=== PATIENT | male | born 1975 | race Caucasian/White ===

== ENCOUNTER 2018-01-31 13:12 | Emergency (ER) | payer OTHER ==
[2018-01-31 13:24] VITALS: BP 153/97
[2018-01-31] MEDS ORDERED: PREDNISONE 20 MG TABLET PO ONE (13:48)
--- NOTE | 2018-01-31 13:52 | ER Document Report ---
HPI - HPI Patient complains to provider of: Skin rash Onset: Other - Days Onset/Duration: Worse Pain Level: 3 Context: Patient complains of pruritic skin rash for the past 4 days. Patient states that he was working out in the yard and likely was exposed to poison stan. Associated Symptoms: Other - Skin rash Exacerbated by: Denies Relieved by: Denies Similar symptoms previously: Yes Recently seen / treated by doctor: No - ROS ROS below otherwise negative: Yes Systems Reviewed and Negative: Yes All other systems reviewed and negative - CONSTITUTIONAL Constitutional: DENIES: Fever, Chills - DERM Skin Problems: Rash Past Medical History - General Information source: Patient - Social History Smoking Status: Current Every Day Smoker Smoking Education Provided: Yes Frequency of alcohol use: None Drug Abuse: None Occupation: Retail Lives with: Family Family History: Reviewed & Not Pertinent - Past Medical History Cardiac Medical History: Reports: Hx Hypertension - does not take any medications Pulmonary Medical History: Reports: Hx Asthma, Hx Bronchitis GI Medical History: Reports: Hx Gastroesophageal Reflux Disease Musculoskeletal Medical History: Reports Hx Arthritis - right knee Psychiatric Medical History: Reports: Hx Anxiety - DX [place] 2007, Hx Depression Past Surgical History: Reports: Hx Appendectomy, Hx Orthopedic Surgery - R knee , ankle, Hx Vascular Surgery - [place] 2001 - Immunizations Hx Diphtheria, Pertussis, Tetanus Vaccination: No Vertical Provider Document - CONSTITUTIONAL Agree With Documented VS: Yes Exam Limitations: No Limitations General Appearance: WD/WN, No Apparent Distress - INFECTION CONTROL TRAVEL OUTSIDE OF THE [place] IN LAST 30 DAYS: No - HEENT HEENT: Atraumatic, Normocephalic - NECK Neck: Normal Inspection - RESPIRATORY Respiratory: No Respiratory Distress - CARDIOVASCULAR Pulses: Normal: Radial - MUSCULOSKELETAL/EXTREMETIES Musculoskeletal/Extremeties: MAEW - NEURO Level of Consciousness: Awake, Alert, Appropriate Motor/Sensory: No Motor Deficit - DERM Integumentary: Warm, Dry, Rash - Erythematous macular papular rash with scattered vesicular lesions, some with a linear distribution pattern Course - Re-evaluation Re-evalutation: 01/31/18 13:49 Patient with a rash that is consistent with contact dermatitis. Patient encouraged to use [id number] poison stan skin wash - Vital Signs Vital signs: Temp Pulse Resp BP Pulse Ox 98.1 F 76 14 153/97 H 97 01/31/18 13:23 01/31/18 13:23 01/31/18 13:23 01/31/18 13:23 01/31/18 13:23 Discharge - Discharge Clinical Impression: Contact dermatitis Qualifiers: Contact dermatitis type: unspecified Contact dermatitis trigger: non-food plants Qualified Code(s): L25.5 - Unspecified contact dermatitis due to plants, except food Condition: Stable Disposition: HOME, SELF-CARE Instructions: Contact Dermatitis ([facility]), Antihistamines ([facility]), Steroid Medication Additional Instructions: Return immediately for any new or worsening symptoms Followup with your primary care provider, call tomorrow to make a followup appointment Use of mimx-lwf-[id number] technu or Zanfel skin wash as directed Prescriptions: Hydroxyzine HCl [Atarax 25 mg Tablet] 1 - 2 tab PO QID #20 tablet Prednisone [Deltasone 5 mg Tablet] 5 mg PO ASDIR PRN #100 tablet PRN Reason: Forms: Smoking Cessation Education, Return to Work Referrals: [facility] [Provider Group] - Follow up as needed
== END 2018-01-31 14:01 | disposition home or self-care (01) ==
LOC: ER 13:12
DX: L25.9 Unspecified contact dermatitis, unspecified cause (principal); I10 Essential (primary) hypertension; J45.909 Unspecified asthma, uncomplicated
CPT/HCPCS: 99282; J7512

== ENCOUNTER 2018-02-15 12:53 | Emergency (ER) | payer OTHER ==
[2018-02-15] MEDS ORDERED: ACETAMINOPHEN 325 MG TABLET PO ONE (13:02)
[2018-02-15] MEDS ORDERED: IBUPROFEN 600 MG TABLET PO ONE (13:02)
--- NOTE | 2018-02-15 13:02 | ER Document Report ---
HPI - HPI Patient complains to provider of: Toothache Onset: Other - 2 days ago Quality of pain: Throbbing Pain Level: 4 Context: 43-year-old [place] smoker male with poor dentition is complaining of upper left side gum and teeth pain. It is gotten worse over the past 3 days. No fever or chills. No swelling. He has a 10-year history of hypertension and states it has been more than several months since he is taken blood pressure medication he was given hydrochlorothiazide prescription in the emergency department in 2016. He has not seen the [place] recently. He denies headache or dizziness. Associated Symptoms: None Exacerbated by: Movement Relieved by: Denies Similar symptoms previously: Yes Recently seen / treated by doctor: No - ROS ROS below otherwise negative: Yes Systems Reviewed and Negative: Yes All other systems reviewed and negative - REPRODUCTIVE Reproductive: DENIES: : Past Medical History - General Information source: Patient - Social History Smoking Status: Current Every Day Smoker Lives with: Spouse/Significant other Family History: Reviewed & Not Pertinent - Past Medical History Cardiac Medical History: Reports: Hx Hypertension - does not take any medications Pulmonary Medical History: Reports: Hx Asthma, Hx Bronchitis GI Medical History: Reports: Hx Gastroesophageal Reflux Disease Musculoskeletal Medical History: Reports Hx Arthritis - right knee Psychiatric Medical History: Reports: Hx Anxiety - DX [place] 2007, Hx Depression Past Surgical History: Reports: Hx Appendectomy, Hx Orthopedic Surgery - R knee , ankle, Hx Vascular Surgery - [place] 2001 - Immunizations Hx Diphtheria, Pertussis, Tetanus Vaccination: No Vertical Provider Document - CONSTITUTIONAL Agree With Documented VS: Yes Exam Limitations: No Limitations - INFECTION CONTROL TRAVEL OUTSIDE OF THE [place] IN LAST 30 DAYS: No - HEENT Notes: Multiple decayed teeth throughout his mouth with retracted gums and gingivitis. There is no abscess. He does state that the left upper side starting from the central incisor to the molars is where it hurts the most. - NECK Neck: Supple. negative: Lymphadenopathy-Left, Lymphadenopathy-Right - NEURO Level of Consciousness: Awake, Alert Course - Re-evaluation Re-evalutation: 02/15/18 13:[address] bucio wants me to start the patient on losartan 50 mg daily send him to the [place] [facility]. He also stated that he does not need any lab work prior to starting the losartan. - Vital Signs Vital signs: Temp Pulse Resp BP Pulse Ox 98.1 F 70 16 209/131 H 97 02/15/18 12:58 02/15/18 12:58 02/15/18 12:58 02/15/18 12:58 02/15/18 12:58 Discharge - Discharge Clinical Impression: Gingivitis, Dental decay Hypertension Qualifiers: Hypertension type: essential hypertension Qualified Code(s): I10 - Essential ( primary) hypertension Condition: Good Disposition: HOME, SELF-CARE Instructions: Acetaminophen, Caring [facility], Dentist, High Blood Pressure, Requiring Treatment ([facility]), Ibuprofen (General) ([facility]), Penicillin V K ( [facility]), Toothache ([facility]), Topical Lidocaine ([facility]), Ultram ([facility]) Additional Instructions: Lidocaine to numb the gums See the dentist See the [place] clinic this week for your blood pressure medication Tylenol up to 4000 mg a day for pain Motrin 600 mg up to 4 times a day for inflammation and pain Stop the BC powder Return to the emergency room for any worsening of the symptoms Prescriptions: Losartan Potassium [Cozaar 50 mg Tablet] 50 mg PO DAILY #30 tablet Penicillin V Potassium [Penicillin Vk 500 mg Tablet] 500 mg PO QID #40 tablet Tramadol HCl [Ultram 50 mg Tablet] 50 mg PO ASDIR PRN #10 tablet PRN Reason: Forms: Return to Work
[2018-02-15] MEDS ORDERED: LIDOCAINE 2% VISCOUS SOLN 20 ML UDCUP PO ONE (13:11)
[2018-02-15] MEDS ORDERED: TRAMADOL HCL 50 MG TABLET PO ONE (13:11)
[2018-02-15 13:38] VITALS: BP 190/126
[2018-02-15] MEDS ORDERED: LOSARTAN POTASSIUM 50 MG TABLET PO ONE (13:41)
== END 2018-02-15 13:57 | disposition home or self-care (01) ==
LOC: ER 12:53
DX: K05.10 Chronic gingivitis, plaque induced (principal); K02.9 Dental caries, unspecified; K08.89 Other specified disorders of teeth and supporting structures; I10 Essential (primary) hypertension; F17.200 Nicotine dependence, unspecified, uncomplicated; J45.909 Unspecified asthma, uncomplicated
CPT/HCPCS: 99282; J3490

== ENCOUNTER 2018-02-16 17:19 | Emergency (ER) | payer OTHER ==
--- NOTE | 2018-02-16 18:22 | ER Document Report ---
ED General - General Chief Complaint: Facial Swelling Stated Complaint: FACIAL SWELLING Time Seen by Provider: 02/16/18 18:21 Mode of Arrival: Ambulatory Information source: Patient, Relative - TRAVEL OUTSIDE OF THE [place] IN LAST 30 DAYS: No - HPI Context: 43 yr old history of hypertension presents to the ED with complaints of left facial swelling that started this morning. Patient was seen in the ED yesterday and started on penicillin, tramadol for pain, losartan 50 mg tablet for blood pressure control. [facility] but has not been seen to have his prescription refilled since 2016. Patient denies any fevers or chills. Patient states he did start penicillin prescription last night. Is a smoker, pack a day for the last 20 years. Patient does have poor dentition. Denies fevers, chills, chest pain,palpitations, shortness of breath, dyspnea, nausea, vomiting, diarrhea, abdominal pain, hematuria,blurred vision, double vision, loss of vision, speech changes, LH, dizziness, syncope, headaches, wheezing, ST, URI, neck pain, weakness, bowel or bladder dysfunction, saddle anesthesia, numbness or tingling in bilateral upper or lower extremities equally , muscle paralysis, weakness in bilateral upper or lower extremities equally or rash. - Related Data Allergies/Adverse Reactions: No Known Allergies Allergy (Verified 02/16/18 17:21) Past Medical History - General Information source: Patient, Relative - Social History Smoking Status: Current Every Day Smoker Family History: Reviewed & Not Pertinent - Past Medical History Cardiac Medical History: Reports: Hx Hypertension - does not take any medications Pulmonary Medical History: Reports: Hx Asthma, Hx Bronchitis Renal/ Medical History: Denies: Hx Peritoneal Dialysis GI Medical History: Reports: Hx Gastroesophageal Reflux Disease Musculoskeletal Medical History: Reports Hx Arthritis - right knee Psychiatric Medical History: Reports: Hx Anxiety - DX [place] 2007, Hx Depression Past Surgical History: Reports: Hx Appendectomy, Hx Orthopedic Surgery - R knee , ankle, Hx Vascular Surgery - [place] 2001 - Immunizations Hx Diphtheria, Pertussis, Tetanus Vaccination: No Review of Systems - Review of Systems Notes: EVIEW OF SYSTEMS: CONSTITUTIONAL : Denies fever, chills, or sweats. Denies recent illness. EENT: Denies eye, ear, throat, or mouth pain or symptoms. Denies nasal or sinus congestion or discharge. noted left facial swelling from lower jaw to left lower periorbital area. Denies throat, tongue, or mouth swelling or difficulty swallowing. CARDIOVASCULAR: Denies chest pain. Denies palpitations or racing or irregular heart beat. Denies ankle edema. RESPIRATORY: Denies cough, cold, or chest congestion. Denies shortness of breath, difficulty breathing, or wheezing. GASTROINTESTINAL: Denies abdominal pain or distention. Denies nausea, vomiting , or diarrhea. Denies blood in vomitus, stools, or per rectum. Denies black, tarry stools. Denies constipation. GENITOURINARY: Denies difficulty urinating, painful urination, burning, frequency, blood in urine, or discharge. MUSCULOSKELETAL: Denies back or neck pain or stiffness. Denies joint pain or swelling. SKIN: Denies rash, lesions or sores. HEMATOLOGIC : Denies easy bruising or bleeding. LYMPHATIC: Denies swollen, enlarged glands. NEUROLOGICAL: Denies confusion or altered mental status. Denies passing out or loss of consciousness. Denies dizziness or lightheadedness. Denies headache. Denies weakness or paralysis or loss of use of either side. Denies problems with gait or speech. Denies sensory loss, numbness, or tingling. Denies seizures. PSYCHIATRIC: Denies anxiety or stress. Denies depression, suicidal ideation, or homicidal ideation. ALL OTHER SYSTEMS REVIEWED AND NEGATIVE. Dictation was performed using Carena recognition software PHYSICAL EXAMINATION: GENERAL: Well-appearing, well-nourished and in no acute distress. HEAD: Atraumatic, normocephalic. EYES: Pupils equal round and reactive to light, extraocular movements intact, sclera anicteric, conjunctiva are normal. ENT: Nares patent, oropharynx clear without exudates. Moist mucous membranes. NECK: Normal range of motion, supple without lymphadenopathy LUNGS: Breath sounds clear to auscultation bilaterally and equal. No wheezes rales or rhonchi. HEART: Regular rate and rhythm without murmurs ABDOMEN: Soft, nontender, nondistended abdomen. No guarding, no rebound. No masses appreciated. Musculoskeletal: Normal range of motion, no pitting or edema. No cyanosis. NEUROLOGICAL: Cranial nerves grossly intact. Normal speech, normal gait. Normal sensory, motor exams PSYCH: Normal mood, normal affect. SKIN: Warm, Dry, normal turgor, no rashes or lesions noted. Constitutional: No symptoms reported EENT: See HPI Cardiovascular: No symptoms reported Respiratory: No symptoms reported Gastrointestinal: No symptoms reported Genitourinary: No symptoms reported Male Genitourinary: No symptoms reported Musculoskeletal: No symptoms reported Skin: See HPI Hematologic/Lymphatic: No symptoms reported Neurological/Psychological: No symptoms reported Physical Exam - Vital signs Vitals: Temp Pulse Resp BP Pulse Ox 98.5 F 88 18 170/113 H 99 02/16/18 17:23 02/16/18 17:23 02/16/18 17:23 02/16/18 17:23 02/16/18 17:23 - Notes Notes: PHYSICAL EXAMINATION: GENERAL: Well-appearing, well-nourished and in no mild distress. HEAD: Atraumatic, normocephalic. left periorbital cellulitis to lower orbit with facial swelling on the left that extends down to left lower jaw. No open wounds or drainage. No induration or warmth to touch. EYES: Pupils equal round and reactive to light, extraocular movements intact, sclera anicteric, conjunctiva are normal. ENT: Nares patent, oropharynx clear without exudates. Moist mucous membranes. Mastoid pain bilaterally, no trismus, drooling. NECK: Normal range of motion, supple without lymphadenopathy. LUNGS: Breath sounds clear to auscultation bilaterally and equal. No wheezes rales or rhonchi. HEART: Regular rate and rhythm without murmurs ABDOMEN: Soft, nontender, nondistended abdomen. No guarding, no rebound. No masses appreciated. Musculoskeletal: Normal range of motion, no pitting or edema. No cyanosis. NEUROLOGICAL: Cranial nerves grossly intact. Normal speech, normal gait. Normal sensory, motor exams. PERRLA, EOMI. Full motor and sensory function throughout. Administrative Law Judge + 2 equal bilaterally in BUE. Tongue midline. No pronator drift. No ataxia. Neck with APROM. Raises eyebrows. Strength is 5 out of 5 in bilateral upper and lower extremities equally.Speaks in full sentences. No weakness on one side. Romberg gait steady able to walk straight line. Able to recall 5 objects. PSYCH: Normal mood, normal affect. SKIN: Warm, Dry, normal turgor, no rashes or lesions noted. Course - Re-evaluation Re-evalutation: Febrile, manual blood pressure of 160/100, patient did take Cozaar today presents for new onset left-sided facial swelling from dental caries, was seen in the ED yesterday.cbc for wbc 14. or anemia, no left shift noted in cbc. BMP unremarkable. lactic acid 1.0. Remains asymptomatic, vitals stable, afebrile. Manual pressure 160/100. 1 g of vancomycin given IV, 50 mg of Benadryl given IV. 500 mg of LR given. Pending CT facial bone, on reevaluation , patient's facial swelling has decreased significantly., Patient remains afebrile, vitals stable, continues to deny any headaches, blurred vision double vision, loss of vision, numbness or tingling down arms or legs, chest pain, shortness of breath, nausea, vomiting, diarrhea, abdominal pain, lightheadedness , dizziness. Disposition given to SABA Silva at 1999 - Vital Signs Vital signs: Temp Pulse Resp BP Pulse Ox 98.5 F 88 18 160/101 H 99 02/16/18 17:23 02/16/18 17:23 02/16/18 17:23 02/16/18 18:26 02/16/18 17:23 - Laboratory Result Diagrams: 02/16/18 19:30 02/16/18 19:30 Laboratory results interpreted by me: 02/16/18 19:30 WBC 14.9 H Absolute Neutrophils 11.0 H Discharge - Discharge Clinical Impression: Facial cellulitis, Periorbital cellulitis of left eye Instructions: Cellulitis ([facility]) Additional Instructions: Cellulitis You have an infection of your skin and underlying soft tissues called cellulitis. This is due to bacteria, which can enter through any break in the skin, or even through an irritated hair follicle. Untreated, cellulitis will usually worsen. Antibiotics are required. Usually, warm packs or warm soaks, and elevation of the infected area are recommended. You should start getting better within 24 to 36 hours. Most infections respond quickly to the right medication. Follow-up care is important, however, to check for abscess (boil) formation, unsuspected foreign body, or resistant infection. If you develop fever, chills, or if the area of infection is becoming rapidly more swollen or painful, call the doctor at once. Prescriptions: Clindamycin HCl 300 mg PO Q6H #28 capsule Prednisone [Deltasone 20 mg Tablet] 3 tab PO DAILY 5 Days #15 tablet Forms: Return to Work Referrals: ROMERO MADDOX MD [ACTIVE STAFF] - Follow up tomorrow
[2018-02-16] MEDS ORDERED: RINGERS SOLUTION,LACTATED 500 ML IV PRN (18:37)
[2018-02-16] MEDS ORDERED: VANCOMYCIN HCL INJ 1000 MG VIAL IV ONE (18:37)
[2018-02-16] MEDS ORDERED: DIPHENHYDRAMINE HCL 50 MG/ML VIAL IV ONE (18:38)
[2018-02-16 19:43] LABS: ABSOLUTE EOSINOPHILS # (AUTO) 0.1 10^3/uL (0.0-0.6); ABSOLUTE LYMPHOCYTES (AUTO) 2.4 10^3/uL (0.5-4.7); ABSOLUTE MONOCYTES (AUTO) 1.4 10^3/uL (0.1-1.4); BASOPHILS % (AUTO) 0.3 % (0-2); EOSINOPHILS % (AUTO) 0.4 % (0-6); HEMATOCRIT 46.3 % (37.9-51.0); HEMOGLOBIN 15.9 g/dL (13.5-17.0); LYMPHOCYTES % (AUTO) 15.9 % (13-45); MEAN CORPUSCULAR HEMOGLOBIN 30.3 pg (27.0-33.4); MEAN CORPUSCULAR HGB CONC 34.4 g/dL (32.0-36.0); MEAN CORPUSCULAR VOLUME 88 fl (80-97); MONOCYTES % (AUTO) 9.5 % (3-13); PLATELET COUNT 193 10^3/uL (150-450); RED BLOOD COUNT 5.25 10^6/uL (4.35-5.55); RED CELL DISTRIBUTION WIDTH 13.5 % (11.5-14.0); SEGMENTED NEUTROPHILS % (AUTO) 73.9 % (42-78); TOTAL CELLS COUNTED % (AUTO) 100 %; WHITE BLOOD COUNT 14.9 10^3/uL (4.0-10.5)
[2018-02-16 19:56] LABS: ANION GAP 16 (5-19); BLOOD UREA NITROGEN 7 mg/dL (7-20); CALCIUM 9.4 mg/dL (8.4-10.2); CARBON DIOXIDE 25 mmol/L (22-30); CHLORIDE 102 mmol/L (98-107); GLUCOSE 95 mg/dL (75-110); POTASSIUM 4.2 mmol/L (3.6-5.0); SODIUM 142.5 mmol/L (137-145)
--- NOTE | 2018-02-16 21:11 | RADIOLOGY REPORT (SQ) ---
CT MAXILLOFACIAL WITH IV CONTRAST HISTORY: Left periorbital/facial swelling for 6 hours, on antibiotics. COMPARISON: None. TECHNIQUE: CT scan of the facial bones with IV contrast. This exam was performed according to our departmental dose-optimization program, which includes automated exposure control, adjustment of the mA and/or kV according to patient size and/or use of iterative reconstruction technique. FINDINGS: No acute facial bone fracture. No mucosal thickening or air-fluid levels in the paranasal sinuses. Mastoid air cells are clear. No retrobulbar mass or hematoma. Left facial soft tissue swelling is seen. No rim-enhancing fluid collection is identified. IMPRESSION: Diffuse left facial soft tissue swelling. No abscess is seen. No acute facial bone fracture.
[2018-02-16 22:09] VITALS: BP 168/103
== END 2018-02-16 22:16 | disposition home or self-care (01) ==
LOC: ER 17:19
DX: L03.213 Periorbital cellulitis (principal); L03.211 Cellulitis of face; F17.200 Nicotine dependence, unspecified, uncomplicated
CPT/HCPCS: 99284; 96361; 96375; 96365; 36415; 83605; 85025; 80048; 70487; J1200; J7120; J3370

== ENCOUNTER 2018-10-14 20:39 | Emergency (ER) | payer OTHER ==
[2018-10-14] MEDS ORDERED: METOCLOPRAMIDE HCL INJ/PF 10 MG/2 ML SDV IV ONE (21:48)
[2018-10-14] MEDS ORDERED: NORMAL SALINE 1000 ML 1,000 ML IV ONE (21:48)
--- NOTE | 2018-10-14 22:06 | ER Document Report ---
ED Headache - General Chief Complaint: Headache Stated Complaint: HEADACHE Time Seen by Provider: 10/14/18 21:36 Primary Care Provider: JAX PALMER [Primary Care Provider] - Follow up as needed Notes: Patient is a 43-year-old male that comes to the emergency department for chief complaint of a headache. He states he woke up with a headache this morning, he states that the headache progressively worsened and he started getting nauseated and vomiting. He reports tightness in his neck on both sides as well. He states that he gets headaches like this every other day but usually resolves after he takes BC powder. He states he tried to take BC powder but he vomited. He states he has never had imaging of the head, he does not take any prescribed medications, he denies head injury, fever, focal numbness or weakness, visual changes. Headache is on both sides of the head extending to the back. TRAVEL OUTSIDE OF THE [place] IN LAST 30 DAYS: No - Related Data Allergies/Adverse Reactions: No Known Allergies Allergy (Verified 02/16/18 17:21) Past Medical History - General Information source: Patient - Social History Smoking Status: Never Smoker Frequency of alcohol use: None Drug Abuse: None Lives with: Family Family History: Reviewed & Not Pertinent - Past Medical History Cardiac Medical History: Reports: Hx Hypertension - does not take any medications Pulmonary Medical History: Reports: Hx Asthma, Hx Bronchitis Renal/ Medical History: Denies: Hx Peritoneal Dialysis GI Medical History: Reports: Hx Gastroesophageal Reflux Disease Musculoskeletal Medical History: Reports Hx Arthritis - right knee Psychiatric Medical History: Reports: Hx Anxiety - DX [place] 2007, Hx Depression Past Surgical History: Reports: Hx Appendectomy, Hx Orthopedic Surgery - R knee, ankle, Hx Vascular Surgery - [place] 2001 - Immunizations Hx Diphtheria, Pertussis, Tetanus Vaccination: No Review of Systems - Review of Systems Constitutional: No symptoms reported EENT: No symptoms reported Cardiovascular: No symptoms reported Respiratory: No symptoms reported Gastrointestinal: See HPI Genitourinary: No symptoms reported Male Genitourinary: No symptoms reported Musculoskeletal: No symptoms reported Skin: No symptoms reported Hematologic/Lymphatic: No symptoms reported Neurological/Psychological: See HPI Physical Exam - Vital signs Vitals: Temp Pulse Resp BP Pulse Ox 98.8 F 96 18 177/134 H 100 10/14/18 20:52 10/14/18 20:52 10/14/18 20:52 10/14/18 20:52 10/14/18 20:52 - Notes Notes: GENERAL: Alert, interacts well. HEAD: Normocephalic, atraumatic. EYES: Pupils equal, round, and reactive to light. Extraocular movements intact. ENT: Oral mucosa moist, tongue midline. Oropharynx unremarkable. Airway patent. NECK: Full range of motion. Supple. Trachea midline. LUNGS: Clear to auscultation bilaterally, no wheezes, rales, or rhonchi. No respiratory distress. HEART: Regular rate and rhythm. No murmur ABDOMEN: Soft, non-tender. Non-distended. Bowel sounds present in all 4 quadrants. GENITOURINARY: Deferred EXTREMITIES: Moves all 4 extremities spontaneously. No edema, normal radial and dorsalis pedis pulses bilaterally. No cyanosis. BACK: no cervical, thoracic, lumbar midline tenderness. There is some easily reproducible tenderness with wincing of the paracervical musculature bilaterally. Range of motion of the neck is intact without nuchal rigidity. No saddle anesthesia, normal distal neurovascular exam. Moves all extremities in full range of motion. NEUROLOGICAL: Alert and oriented x3. Normal speech. Cranial nerves II through XII grossly intact. PSYCH: Normal affect, normal mood. SKIN: Warm, dry, normal turgor. No rashes or lesions noted. Course - Re-evaluation Re-evalutation: On initial presentation patient had a headache, was very hypertensive, has also had very frequent headaches without previous imaging, vomited earlier today. Discussed with patient, decision was made to perform CAT scan. CAT scan without any acute findings. After Reglan patient still has a headache, given Toradol, Benadryl, methocarbamol because of suspected tension component. Reevaluated patient after this. He is sitting up, states his headache is completely gone, states he feels great. He was given his nighttime p.o. medications, his blood pressure did significantly improved with this. Patient is requesting to leave. As a result I have a very low suspicion of intracranial hemorrhage, subarachnoid hemorrhage, there is no evidence of mass on the CT, I do not suspect meningitis or venous sinus thrombosis. Patient will be treated for suspected tension headaches, discussed primary care follow-up and return precautions. Patient and significant other at bedside state understanding and agreement. - Vital Signs Vital signs: Temp Pulse Resp BP Pulse Ox 97.4 F 80 20 157/99 H 95 07/06/19 23:01 10/15/18 01:30 10/15/18 01:30 10/15/18 01:30 10/15/18 01:30 Discharge - Discharge Clinical Impression: Headache Qualifiers: Headache type: unspecified Headache chronicity pattern: acute headache In tractability: not intractable Qualified Code(s): R51 - Headache Condition: Stable Disposition: HOME, SELF-CARE Additional Instructions: Your evaluation, symptoms, and resolution with treatment are very suggestive of tension headaches and a triggered migraine tonight. You can take the Fioricet medication if needed for headaches in the future. Take the muscle relaxer, apply heat to your neck, massage the neck. Follow-up with primary care for additional evaluation and management of mi graines. Return if you worsen including returned or severe headache, vomiting, fever, or any other concerning or worsening symptoms. Prescriptions: Butalb/Acetaminophen/Caffeine [Fioricet (50-325-40 mg) Tablet] 1 tab PO Q4HP PRN #20 tab PRN Reason: Methocarbamol [Robaxin-750] 750 mg PO QID PRN #20 tablet PRN Reason: [facility] - Follow up as needed
[2018-10-14] MEDS ORDERED: KETOROLAC TROMETHAMINE INJ/PF 30 MG/1 ML SDV IV ONE (23:05)
[2018-10-14] MEDS ORDERED: DIPHENHYDRAMINE HCL 50 MG/ML VIAL IV ONE (23:06)
[2018-10-14] MEDS ORDERED: METHOCARBAMOL INJ/PF 1000 MG/10 ML SDV IV ONE (23:06)
--- NOTE | 2018-10-14 23:19 | RADIOLOGY REPORT (SQ) ---
CT HEAD WITHOUT IV CONTRAST EXAM DATE: 10/14/2018 9:47 PM CDT HISTORY: Frequent headaches, vomiting, hypertension. COMPARISON: None. TECHNIQUE: CT scan of the brain without IV contrast. This exam was performed according to our departmental dose-optimization program, which includes automated exposure control, adjustment of the mA and/or kV according to patient size and/or use of iterative reconstruction technique. FINDINGS: The ventricles, cisterns, and sulci are age-appropriate. No evidence of acute infarction, intracranial hemorrhage, extra-axial fluid collection, or midline shift. No air-fluid levels are seen in the paranasal sinuses to suggest acute sinusitis. No depressed skull fracture. IMPRESSION: No acute intracranial findings.
[2018-10-14] MEDS ORDERED: HYDROCHLOROTHIAZIDE 25 MG TABLET PO ONE (23:33)
[2018-10-14] MEDS ORDERED: LOSARTAN POTASSIUM 50 MG TABLET PO ONE (23:33)
[2018-10-15 01:31] VITALS: BP 157/99
== END 2018-10-15 01:30 | disposition home or self-care (01) ==
LOC: ER 20:39
DX: R51 Headache (principal); R11.2 Nausea with vomiting, unspecified
CPT/HCPCS: 99283; 96361; 96375; 96365; 70450; J1200; J2800; J1885; J2765; J7030

== ENCOUNTER 2019-02-27 20:21 | Emergency (ER) | payer OTHER ==
[2019-02-27] MEDS ORDERED: IBUPROFEN 800 MG TABLET PO ONE (21:02)
--- NOTE | 2019-02-27 21:03 | ER Document Report ---
ED Medical Screen (RME) - General Chief Complaint: Jaw Pain Stated Complaint: JAW PAIN Time Seen by Provider: 02/27/19 20:56 Primary Care Provider: [facility] PALMER [Primary Care Provider] - Follow up as needed Mode of Arrival: Ambulatory Information source: Patient Notes: This 44-year-old male with history of high blood pressure presents with right- sided jaw pain. Denies dental injury. Reports its been aching on and off for last couple days with severe pain now. No fever vomiting diarrhea. Patient blood pressure extremely high. Denies shortness of breath denies chest pain. Denies history of cardiac disease. I have greeted and performed a rapid initial assessment of this patient. A comprehensive ED assessment and evaluation of the patient, analysis of test results and completion of the medical decision making process will be conducted by additional ED providers. Dictation of this chart was performed using voice recognition software; therefore, there may be some unintended grammatical errors. TRAVEL OUTSIDE OF THE [place] IN LAST 30 DAYS: No - Related Data Allergies/Adverse Reactions: No Known Allergies Allergy (Verified 02/27/19 20:57) Past Medical History - Past Medical History Cardiac Medical History: Reports: Hx Hypertension - does not take any medications Pulmonary Medical History: Reports: Hx Asthma, Hx Bronchitis Renal/ Medical History: Denies: Hx Peritoneal Dialysis GI Medical History: Reports: Hx Gastroesophageal Reflux Disease Musculoskeltal Medical History: Reports Hx Arthritis - right knee Psychiatric Medical History: Reports: Hx Anxiety - DX [place] 2007, Hx Depression Past Surgical History: Reports: Hx Appendectomy, Hx Orthopedic Surgery - R knee, ankle, Hx Vascular Surgery - [place] 2001 - Immunizations Hx Diphtheria, Pertussis, Tetanus Vaccination: No Physical Exam - Vital signs Vitals: Temp Pulse Resp BP Pulse Ox 98.0 F 62 20 180/136 H 99 02/27/19 20:47 02/27/19 20:47 02/27/19 20:47 02/27/19 20:47 02/27/19 20:47 Course - Vital Signs Vital signs: Temp Pulse Resp BP Pulse Ox 98.0 F 62 20 180/136 H 99 02/27/19 20:47 02/27/19 20:47 02/27/19 20:47 02/27/19 20:47 02/27/19 20:47 Doctor's Discharge - Discharge Referrals: [facility] [Primary Care Provider] - Follow up as needed
[2019-02-27 21:31] LABS: ABSOLUTE BASOPHILS # (AUTO) 0.1 10^3/uL (0.0-0.2); ABSOLUTE EOSINOPHILS # (AUTO) 0.2 10^3/uL (0.0-0.6); ABSOLUTE LYMPHOCYTES (AUTO) 2.8 10^3/uL (0.5-4.7); ABSOLUTE MONOCYTES (AUTO) 0.7 10^3/uL (0.1-1.4); BASOPHILS % (AUTO) 0.7 % (0-2); EOSINOPHILS % (AUTO) 1.8 % (0-6); HEMATOCRIT 42.2 % (37.9-51.0); HEMOGLOBIN 14.7 g/dL (13.5-17.0); LYMPHOCYTES % (AUTO) 32.3 % (13-45); MEAN CORPUSCULAR HGB CONC 34.7 g/dL (32.0-36.0); MEAN CORPUSCULAR VOLUME 86 fl (80-97); MONOCYTES % (AUTO) 7.8 % (3-13); PLATELET COUNT 186 10^3/uL (150-450); RED BLOOD COUNT 4.89 10^6/uL (4.35-5.55); RED CELL DISTRIBUTION WIDTH 12.9 % (11.5-14.0); SEGMENTED NEUTROPHILS % (AUTO) 57.4 % (42-78); TOTAL CELLS COUNTED % (AUTO) 100 %; WHITE BLOOD COUNT 8.7 10^3/uL (4.0-10.5)
[2019-02-27 21:45] LABS: ALBUMIN 4.3 g/dL (3.5-5.0); ALKALINE PHOSPHATASE 96 U/L (38-126); ANION GAP 11 (5-19); ASPARTATE AMINO TRANSFERASE 38 U/L (17-59); BILIRUBIN,DIRECT 0.2 mg/dL (0.0-0.4); BILIRUBIN,TOTAL 1.1 mg/dL (0.2-1.3); BLOOD UREA NITROGEN 4 mg/dL (7-20); CALCIUM 8.8 mg/dL (8.4-10.2); CARBON DIOXIDE 24 mmol/L (22-30); CHLORIDE 103 mmol/L (98-107); GLUCOSE 94 mg/dL (75-110); POTASSIUM 3.9 mmol/L (3.6-5.0); TOTAL PROTEIN 7.4 g/dL (6.3-8.2)
--- NOTE | 2019-02-27 22:50 | EKG REPORT ---
SEVERITY:- ABNORMAL ECG - SINUS RHYTHM LVH WITH SECONDARY REPOLARIZATION ABNORMALITY : Confirmed by: Marco A Tesfaye MD 27-Feb-2019 22:49:29
[2019-02-27] MEDS ORDERED: CLONIDINE HCL 0.2 MG TABLET PO ONE (23:52)
[2019-02-27] MEDS ORDERED: OXYCODONE-ACETAMINOPHEN 5-325 MG TABLET PO ONE (23:53)
--- NOTE | 2019-02-28 | ER Document Report ---
ED General - General Chief Complaint: Jaw Pain Stated Complaint: JAW PAIN Time Seen by Provider: 02/27/19 20:56 [facility]: [facility] [[facility]] - Follow up as needed Mode of Arrival: Ambulatory TRAVEL OUTSIDE OF THE [place] IN LAST 30 DAYS: No - HPI Notes: Mr. Fox is a 44-year-old male followed [facility]adically at [facility] with a history of hypertension. He is noncompliant with his medication and comes in expressing concerns about his blood pressure and also noting that he has a dental abscess is causing him severe pain with little no relief from a variety of [id number] medications he is taken. He is not on any prescription medicine and said he has not been on anything for his blood pressure in over a year. He is unable to recall what he was treated with in the past. Patient is a smoker. He denies abuse of alcohol. He has no known allergies. He denies use of any recreational drugs and specifically denies use of cocaine. He works as a keller. Patient denies headache. He denies shortness of breath. He denies chest pain. He denies any focal neurologic symptoms. Onset - Related Data Allergies/Adverse Reactions: No Known Allergies Allergy (Verified 02/27/19 20:57) Past Medical History - General Information source: Patient - Social History Smoking Status: Current Every Day Smoker Frequency of alcohol use: None Drug Abuse: None Family History: Reviewed & Not Pertinent Patient has suicidal ideation: No Patient has homicidal ideation: No - Past Medical History Cardiac Medical History: Reports: Hx Hypertension - does not take any medications Pulmonary Medical History: Reports: Hx Asthma, Hx Bronchitis Renal/ Medical History: Denies: Hx Peritoneal Dialysis GI Medical History: Reports: Hx Gastroesophageal Reflux Disease Musculoskeletal Medical History: Reports Hx Arthritis - right knee Psychiatric Medical History: Reports: Hx Anxiety - DX [place] 2007, Hx Depression Past Surgical History: Reports: Hx Appendectomy, Hx Orthopedic Surgery - R knee, ankle, Hx Vascular Surgery - [place] 2001 - Immunizations Hx Diphtheria, Pertussis, Tetanus Vaccination: No Review of Systems - Review of Systems Notes: Constitutional: Negative for fever/chills. HENT: Negative for sore throat. Eyes: Negative for visual changes. Cardiovascular: Negative for chest pain. Respiratory: Negative for shortness of breath. Gastrointestinal: Negative for abdominal pain, vomiting or diarrhea. Genitourinary: Negative for dysuria. Musculoskeletal: Negative for back pain. Skin: Negative for rash. Neurological: Negative for headaches, weakness or numbness. 10 point ROS negative except as marked above and in HPI. Physical Exam - Vital signs Vitals: Temp Pulse Resp BP Pulse Ox 98.0 F 62 20 180/136 H 99 02/27/19 20:47 02/27/19 20:47 02/27/19 20:47 02/27/19 20:47 02/27/19 20:47 - Notes Notes: GENERAL: Well-developed well-nourished appearing in moderate pain. SKIN: Good turgor no rashes. HEAD: Normocephalic atraumatic. EYES: PERRLA. Conjunctivae and sclerae clear. EARS: CANALS AND TMS CLEAR. NOSE: CLEAR. MOUTH: Moist mucosa. Poor dentition with multiple missing teeth. Patient appears to have first upper premolar on the right side broken off at the gumline with significant swelling and tenderness over the adjacent gum tissue consistent with periapical abscess. No stridor or edema. No drooling. Throat: Clear. NECK: Supple. No masses or thyromegaly. No adenopathy. Carotids 2+ without bruits. No JVD. BACK: Symmetrical without tenderness. CHEST: Respirations unlabored. Breath sounds clear and symmetrical. HEART: Regular rhythm. No murmur or rub. S4 gallop present. ABDOMEN: Soft nontender without masses, organomegaly or rebound. Bowel sounds normally active. No bruits. GENITALIA: Deferred. EXTREMITIES: No edema. No calf tenderness. Cap refill less than 1.5 seconds. Dorsalis pedis and posterior tibial pulses 3+ and symmetrical. NEUROLOGICAL: GCS 15. Alert and oriented x3. Normal gait. Fluent speech. Cranial nerves II through XII intact. Sensorimotor and cerebellar normal. Normal tone. Course - Re-evaluation Re-evalutation: 02/27/19 23:58 This man has chronic hypertension and is totally noncompliant with his treatment. Looking back at past records he has had significantly elevated blood pressures for quite a long period of time. His evaluation tonight does not suggest any acute endorgan damage. I believe his level of hypertension is probably adversely affected by his pain at this time. I am going to give him some more Percocet to try to improve his pain and also some oral clonidine and will try to bring the pressure down some prior to discharge and encourage urgent follow-up with primary care doctor after stabilization in the emergency department. We will start him on some antihypertensive therapy at time of discharge. 02/28/19 01:12 BP is down with oral clonidine. Pain is much improved with 1 dose of Percocet here. I am going to give him a 3-day work note and send him out with limited prescription for Percocet 12 tablets and recommend follow-up with a dentist and with [facility] regarding his blood pressure immediately. I am going to start him on Zestoretic and will give him a 30-day supply on this. - Vital Signs Vital signs: Temp Pulse Resp BP Pulse Ox 97.5 F 81 16 180/86 H 98 02/28/19 00:09 02/28/19 00:09 02/28/19 00:09 02/28/19 00:47 02/28/19 00:09 - Laboratory Result Diagrams: 02/27/19 21:21 02/27/19 21:21 Laboratory results interpreted by me: 02/27/19 21:21 BUN 4 L Discharge - Discharge Clinical Impression: Dental abscess, Hypertensive urgency Condition: Stable Disposition: HOME, SELF-CARE Additional Instructions: Dental Infection or Abscess You have an infection, perhaps an abscess (pus formation) of the gum around one of your teeth, which is probably decayed. If there is an abscess, it may drain on its own or it may need to be opened or lanced. Severe swelling or drainage around a tooth usually means a deep dental abscess which usually requires evaluation and treatment by a dentist or oral surgeon. Antibiotics may be prescribed while awaiting dental treatment. If you develop high fever with chills, worsening pain, or increasing swelling in the area, see a dentist or oral surgeon immediately or return to the Emergency Department immediately.High Blood Pressure, Requiring Treatment Your blood pressure is high. This is called "hypertension." Today's reading was (normal is less than 140/90). Your history and exam suggest that this is not a temporary problem. You need treatment of your blood pressure. Pre-hypertension/Hypertension: The patient has been informed that they may have pre-hypertension or Hypertension based on a blood pressure reading in the emergency department. I recommend that the patient call the primary care provider listed on their discharge instructions or a physician of their choice this wee to arrange follow up for further evaluation of possible pre- hypertension or Hypertension. If left untreated, high blood pressure greatly increases your risk of heart attack and stroke. Please don't ignore this problem. If you have blood pressure medicine but aren't using it regularly, start taking it again. Some simple things you can do to help are: Get some aerobic exercise for at least 20 minutes on a daily basis. (See your doctor before beginning any new exercise program.) Eat a low-fat diet. Lose excess weight. Avoid salty foods and avoid adding salt to any of the foods you eat. Avoid diet pills, decongestants, "energizing" herbs, and other medicines that elevate blood pressure. There are many different medicines that treat blood pressure. If your medic ation causes unpleasant side effects, call your doctor. There are others you can try. Treating hypertension is a life-long investment in your health. You will receive a work note for the next 3 days. You need to see a dentist and your [facility] physician as soon as possible. Your blood pressure needs further attention this week. Return to the hospital as needed for headache, blurred vision chest pain shortness of breath or any neurological symptoms. Prescriptions: Tramadol HCl [Ultram 50 mg Tablet] 50 mg PO Q4HP PRN #12 tab PRN Reason: Amoxicillin 1 tab PO TID 10 Days #30 tab Lisinopril/Hydrochlorothiazide [Zestoretic 10-12.5 mg Tablet] 1 tab PO DAILY #30 tablet Forms: Elevated Blood Pressure, Return to Work Referrals: [facility] [[facility] Care [facility]] - Follow up as needed
[2019-02-28 01:26] VITALS: BP 165/82
== END 2019-02-28 01:25 | disposition home or self-care (01) ==
LOC: ER 20:21
DX: K04.7 Periapical abscess without sinus (principal); I16.0 Hypertensive urgency; I10 Essential (primary) hypertension; F17.200 Nicotine dependence, unspecified, uncomplicated; J45.909 Unspecified asthma, uncomplicated; Z91.14 Patient's other noncompliance with medication regimen
CPT/HCPCS: 36415; 80053; 85025; 93005; 93010; 99283

== ENCOUNTER 2019-09-28 23:11 | Emergency (ER) | payer OTHER ==
[2019-09-28] MEDS ORDERED: NORMAL SALINE 1000 ML 1,000 ML IV ONE (23:48)
[2019-09-28] MEDS ORDERED: IBUPROFEN 800 MG TABLET PO ONE (23:49)
--- NOTE | 2019-09-28 23:51 | ER Document Report ---
ED General - General Chief Complaint: Fever Stated Complaint: FEVER/FLU LIKE SYMPTOMS Time Seen by Provider: 09/28/19 23:23 Primary Care Provider: [facility] [Primary Care Provider] - Follow up as needed Notes: Patient is a 44-year-old male that comes to the emergency department for chief complaint of a cough and generalized body aches that started yesterday, today he felt much worse, started spiking fevers, he had a fever of 102.8 at home, he took 2 Tylenol extra strength and came in. He denies specific chest pain, abdominal pain, or headache. He states he just generally hurts. He smokes, denies a history of asthma or COPD, has a past medical history including hypertension, GERD, anxiety/depression, appendectomy. Denies recreational drugs, recent travel, obvious sick exposures. He tested negative for the coronavirus 6 weeks ago. TRAVEL OUTSIDE OF THE [place] IN LAST 30 DAYS: No - Related Data Allergies/Adverse Reactions: No Known Allergies Allergy (Verified 02/27/19 20:57) Past Medical History - General Information source: Patient - Social History Smoking Status: Current Every Day Smoker Smoking Education Provided: Yes - <3 min Frequency of alcohol use: Occasional Drug Abuse: None Lives with: Family Family History: Reviewed & Not Pertinent Patient has homicidal ideation: No - Past Medical History Cardiac Medical History: Reports: Hx Hypertension - does not take any medications Pulmonary Medical History: Reports: Hx Asthma, Hx Bronchitis Renal/ Medical History: Denies: Hx Peritoneal Dialysis GI Medical History: Reports: Hx Gastroesophageal Reflux Disease Musculoskeletal Medical History: Reports Hx Arthritis - right knee Psychiatric Medical History: Reports: Hx Anxiety - DX [place] 2007, Hx Depression Past Surgical History: Reports: Hx Appendectomy, Hx Orthopedic Surgery - R knee, ankle, Hx Vascular Surgery - [place] 2001 - Immunizations Hx Diphtheria, Pertussis, Tetanus Vaccination: Yes Review of Systems - Review of Systems Constitutional: See HPI EENT: No symptoms reported Cardiovascular: No symptoms reported Respiratory: See HPI Gastrointestinal: No symptoms reported Genitourinary: No symptoms reported Male Genitourinary: No symptoms reported Musculoskeletal: See HPI Skin: No symptoms reported Hematologic/Lymphatic: No symptoms reported Neurological/Psychological: No symptoms reported Physical Exam - Vital signs Vitals: Temp Pulse Resp BP Pulse Ox 100.8 F H 123 H 18 185/128 H 98 09/28/19 23:12 09/28/19 23:12 09/28/19 23:12 09/28/19 23:12 09/28/19 23:12 - Notes Notes: GENERAL: Alert, interacts well. No acute distress. HEAD: Normocephalic, atraumatic. EYES: Pupils equal, round, and reactive to light. Extraocular movements intact. ENT: Oral mucosa moist, tongue midline. Oropharynx unremarkable. Airway patent. Nares patent, sinuses non-tender, ear canals unremarkable, TM's intact. NECK: Full range of motion. Supple. Trachea midline. No lymphadenopathy. LUNGS: Clear to auscultation bilaterally, no wheezes, rales, or rhonchi. No respiratory distress. Non-tender chest wall. Occasional mild cough HEART: Tachycardia, normal rhythm, no murmur ABDOMEN: Soft, non-tender. Non-distended. EXTREMITIES: Moves all 4 extremities spontaneously. No edema, normal radial and dorsalis pedis pulses bilaterally. No cyanosis. BACK: no cervical, thoracic, lumbar midline tenderness. No saddle anesthesia, normal distal neurovascular exam. Moves all extremities in full range of motion. NEUROLOGICAL: Alert and oriented x3. Normal speech. Cranial nerves II through XII grossly intact. Strength 5/5 in all extremities. PSYCH: Normal affect, normal mood. SKIN: Slightly flushed and warm Course - Re-evaluation Re-evalutation: Patient tachycardic, febrile, has occasional cough. No respiratory distress, soft abdomen, unremarkable ENT, no hypoxia. No nuchal rigidity or headache. Work-up pending. CBC unremarkable with no leukocytosis or leukopenia. Chemistry unremarkable. Lactic acid is not elevated. Urinalysis unremarkable. Chest x-ray unremarkable. On reevaluation after treatment with IV fluids and fever tr eatment patient is well-appearing, states he feels much better. He is borderline tachycardic. Overall based on his evaluation and symptoms I suspect this is viral, perhaps COVID-19. Blood cultures are pending. Discussed with patient. Discussed expectations, because of possible development to nausea vomiting I provided patient with Phenergan after discussion, discussed fever treatment, expectations, follow-up, and return precautions in detail. Patient states appreciation and agreement with plan. Stable and well-appearing at time of discharge. - Vital Signs Vital signs: Temp Pulse Resp BP Pulse Ox 99.9 F 107 H 15 153/118 H 98 09/29/19 03:10 09/29/19 03:10 09/29/19 03:10 09/29/19 03:10 09/29/19 03:10 - Laboratory Result Diagrams: 09/28/19 23:39 09/28/19 23:39 Laboratory results interpreted by me: 09/28/19 09/28/19 23:39 23:39 Total Bilirubin 1.5 H Alkaline Phosphatase 134 H Urine Blood SMALL H Urine Urobilinogen 2.0 H Discharge - Discharge Clinical Impression: Cough, Body aches Fever Qualifiers: Fever type: unspecified Qualified Code(s): R50.9 - Fever, unspecified Condition: Stable Disposition: HOME, SELF-CARE Additional Instructions: Your evaluation is very consistent with a viral illness. You have been tested for the coronavirus. You will be contacted with the results of this, see evgeny claudio details below. I recommend that you take 1000 mg of Tylenol and 600 g of ibuprofen every 6 hours to keep your fever down, drink plenty of fluids, rest. Take the Phenergan if needed for nausea. Symptoms should resolve with time. Follow-up with primary care. Return if you worsen including difficulty breathing, uncontrolled vomiting, or any other concerning or worsening symptoms. As a person under investigation for COVID-19, the [place] Department of Health and Human Services (division on public health) advises you to adhere to the following guidance until your test results are reported to you. If your test result is positive, you will receive additional information from your provider and your local health department at that time. Remain at home until you are cleared by the health provider or public health authorities. Keep a log of visitors to your home, notify any visitors to your home of your isolation status. If you plan to move to a new address or leave the county, notify the local health department in your County. Call your Doctor or seek care if you have an urgent medical need. Before seeking medical care, call him to get instructions from the provider before arriving at the medical office, clinic, or hospital. Notify them that you are being tested for the virus (COVID-19) so that arrangements can be made, as necessary, to prevent transmission to others in the healthcare setting. Next, notify the local health department in your county. If a medical emergency arises and you need to call 911, inform the first responders that you are being tested for the virus that causes COVID-19. Next, notify the local health department in your county. Prescriptions: Promethazine HCl [Phenergan 25 mg Tablet] 25 mg PO Q6H PRN #20 tablet PRN Reason: Forms: Return to Work, Elevated Blood Pressure [facility]errals: [facility] [[facility]] - Follow up as needed
[2019-09-29 00:03] LABS: ABSOLUTE EOSINOPHILS # (AUTO) 0.1 10^3/uL (0.0-0.6); ABSOLUTE LYMPHOCYTES (AUTO) 0.9 10^3/uL (0.5-4.7); ABSOLUTE MONOCYTES (AUTO) 0.6 10^3/uL (0.1-1.4); BASOPHILS % (AUTO) 0.6 % (0-2); EOSINOPHILS % (AUTO) 0.9 % (0-6); HEMATOCRIT 45.5 % (37.9-51.0); HEMOGLOBIN 16.2 g/dL (13.5-17.0); LYMPHOCYTES % (AUTO) 13.1 % (13-45); MEAN CORPUSCULAR HEMOGLOBIN 30.7 pg (27.0-33.4); MEAN CORPUSCULAR HGB CONC 35.5 g/dL (32.0-36.0); MEAN CORPUSCULAR VOLUME 87 fl (80-97); MONOCYTES % (AUTO) 9.3 % (3-13); PLATELET COUNT 161 10^3/uL (150-450); RED BLOOD COUNT 5.26 10^6/uL (4.35-5.55); RED CELL DISTRIBUTION WIDTH 13.1 % (11.5-14.0); SEGMENTED NEUTROPHILS % (AUTO) 76.1 % (42-78); TOTAL CELLS COUNTED % (AUTO) 100 %; WHITE BLOOD COUNT 6.6 10^3/uL (4.0-10.5)
[2019-09-29 00:09] LABS: ALBUMIN 4.7 g/dL (3.5-5.0); ALKALINE PHOSPHATASE 134 U/L (38-126); ANION GAP 11 (5-19); ASPARTATE AMINO TRANSFERASE 33 U/L (17-59); BILIRUBIN,TOTAL 1.5 mg/dL (0.2-1.3); BLOOD UREA NITROGEN 10 mg/dL (7-20); CALCIUM 9.6 mg/dL (8.4-10.2); CARBON DIOXIDE 25 mmol/L (22-30); CHLORIDE 104 mmol/L (98-107); GLUCOSE 104 mg/dL (75-110); POTASSIUM 3.9 mmol/L (3.6-5.0); TOTAL PROTEIN 8.1 g/dL (6.3-8.2)
--- NOTE | 2019-09-29 00:35 | RADIOLOGY REPORT (SQ) ---
EXAM DESCRIPTION: XR CHEST 1 VIEW COMPLETED DATE/TME: 09/28/2019 23:35 CLINICAL HISTORY: 44 years Male, fever, cough, tachycardia COMPARISON: 10/16/13 NUMBER OF VIEWS/TECHNIQUE: 1/AP FINDINGS: Clear lung antoine. Normal cardiac silhouette size. No pneumothorax. Stable bony thorax. IMPRESSION: No significant change.
[2019-09-29 02:10] LABS: APPEARANCE,URINE CLEAR; BILIRUBIN,URINE NEGATIVE (NEGATIVE); COLOR,URINE YELLOW; GLUCOSE, URINE NEGATIVE (NEGATIVE); KETONES,URINE NEGATIVE (NEGATIVE); PROTEIN,URINE NEGATIVE (NEGATIVE); URINE SPECIFIC GRAVITY 1.017
[2019-09-29] MEDS ORDERED: DEXAMETHASONE SOD PHOS INJ 10 MG/1 ML VIAL IV ONE (02:44)
[2019-09-29 03:11] VITALS: BP 153/118
--- NOTE | 2019-09-29 11:42 | EKG REPORT ---
SEVERITY:- ABNORMAL ECG - SINUS TACHYCARDIA PROBABLE LVH WITH SECONDARY REPOL ABNRM DIFFUSE NONSPECIFIC ST-T CHANGES. : Confirmed by: Marco A Tesfaye MD 29-Sep-2019 11:41:12
== END 2019-09-29 03:11 | disposition home or self-care (01) ==
LOC: ER 23:11
DX: R50.9 Fever, unspecified (principal); R05 Cough; M79.10 Myalgia, unspecified site; F17.200 Nicotine dependence, unspecified, uncomplicated; I10 Essential (primary) hypertension; J45.909 Unspecified asthma, uncomplicated; Z20.828 Contact with and (suspected) exposure to other viral communicable diseases
CPT/HCPCS: 99284; 96361; 96374; 36415; 87040; 83605; 85025; 87635; 80053; 81001; 71045; 93005; 93010; J7030; J1100; C9803